=== PATIENT | male | born 1950 | race Caucasian/White ===

== ENCOUNTER → 2019-02-14 | Outpatient (CLI) | payer MEDICARE ==
[~2019-02-14] MED LIST: ASPI81CH33 PO; BUPR15TA PO; METO50TA7 PO; ROSU40TA4 PO
[2019-02-14 08:17] LABS: HEMATOCRIT 44.1 % (42.0-52.0); HEMOGLOBIN 14.5 g/dl (13.5-17.5); MEAN CORPUSCULAR HEMOGLOBIN 29.2 pg (27.0-33.0); MEAN CORPUSCULAR HGB CONC 32.9 g/dl (32.0-36.5); MEAN CORPUSCULAR VOLUME 88.9 fl (80.0-96.0); PLATELET COUNT, AUTOMATED 197 10^3/uL (150-450); RED BLOOD COUNT 4.96 10^6/uL (4.30-6.10); WHITE BLOOD COUNT 7.1 10^3/uL (4.0-10.0)
[2019-02-14 08:37] LABS: PROTHROMBIN TIME 12.9 SECONDS (11.8-14.0)
[2019-02-14 08:40] LABS: ERYTHROCYTE SEDIMENTATION RATE 3 mm/hr (0-20)
[2019-02-14 08:41] LABS: BILIRUBIN,TOTAL 1.1 MG/DL (0.2-1.0); CALCIUM LEVEL 9.5 MG/DL (8.8-10.2); CREATININE FOR GFR 1.6 MG/DL (0.70-1.30); POTASSIUM SERUM 4.4 MEQ/L (3.5-5.1); TOTAL PROTEIN 6.9 GM/DL (6.4-8.2)
--- NOTE | 2019-02-14 08:55 | ECGEPIP ---
[facility] Test Date: 2019-02-14 Pat Name: PERRI ESCALERA Department: Room: - Gender: Male Rn Mental Health: BROOK : 1950 Requested By: Matteo Poole Order Number: [id number] Reading MD: Wilder Paulino Measurements Intervals [place] Rate: 45 P: 4 WI: 212 QRS: -7 QRSD: 113 T: 7 QT: 434 QTc: 379 Interpretive Statements Sinus bradycardia First-degree AV block LA conduction disturbance with leftward axis and somewhat prominent precordial voltage; possible LVH No prior tracing for comparison Electronically Signed on 02-14-2019 8:55:29 EDT by Wilder Paulino
--- NOTE | 2019-02-14 09:38 | REP ---
Chest x-ray: Two views. History: Left knee arthritis. No comparison study. Findings: The patient is status post cervical spine fusion with posterior element and ventral fusion plate hardware visible in the lower cervical spine. There are clips in the right upper quadrant of the abdomen consistent with previous cholecystectomy. The thoracic aorta is tortuous. The lungs are symmetrically aerated and clear. Heart is not felt to be enlarged. Pulmonary vasculature is not increased. Pleural angles are sharp. Impression: No active cardiopulmonary disease. Postoperative changes in the cervical spine and right upper quadrant of the abdomen. Electronically Signed by Saul Morris MD 02/14/2019 12:57 P
== END ==
LOC: M LAB 07:40
PROVIDERS: ATTEND Orthopaedic Surgery
DX: Z01.818 Encounter for other preprocedural examination (principal); M17.12 Unilateral primary osteoarthritis, left knee; Z98.1 Arthrodesis status; Z90.49 Acquired absence of other specified parts of digestive tract

== ENCOUNTER 2019-03-13 06:42 | Inpatient (IN) | payer MEDICARE ==
--- NOTE | 2019-03-03 23:43 | HPE ---
DATE OF PLANNED ADMISSION: 03/13/2019 REFERRING PHYSICIAN: Matteo Poole MD CHIEF COMPLAINT: Left knee pain. HISTORY OF PRESENT ILLNESS: Mr. Munoz is a pleasant 68-year-old male with progressively worsening left knee pain and stiffness. He had failed to improve with conservative treatment. He elected for surgery for his continued symptoms. He has pain with weightbearing activities and his activities of daily living. X-rays of his knee are notable for advanced osteoarthritis of the left knee joint. He has consented for a left total knee arthroplasty by Dr. Matteo Poole. Medical optimization was performed by Dr. Ramirez. ALLERGIES: STREPTOKINASE. CURRENT MEDICATIONS: - Anexsia 5/325 one every 4-6 hours as needed - bupropion hydrochloride ER 150 mg once a day - cyclobenzaprine 10 mg once a day - metoprolol 50 mg twice a day - rosuvastatin 40 mg once a day - vitamin D 50,000 units once a week PAST MEDICAL HISTORY: Includes high blood pressure and high cholesterol. PAST SURGICAL HISTORY: Includes left knee arthroscopy and right knee arthroscopy both in 2011. 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 Does not smoke. Occasionally drinks alcohol. FAMILY HISTORY: Noncontributory. REVIEW OF SYSTEMS: This patient denies chest pain, heart palpitations, cough, wheezing, difficulty breathing, and shortness of breath. He denies abdominal pain, nausea, vomiting, diarrhea, or constipation. He denies recent upper respiratory infection or urinary tract infection symptoms. He does complain of persistent pain in the left knee. PHYSICAL EXAMINATION: General: He is a well-nourished, well-developed in no acute distress, alert male. He ambulates with a moderate limp favoring his left lower extremity without using assistive devices. Vital signs: He is 5 feet 9 inches tall, weighs 188 pounds with a temperature of 97.8, blood pressure 140/70, pulse of 80 and respirations 17. Neck: Supple without adenopathy or jugular venous distension. There were no carotid bruits appreciated upon auscultation. Lungs: Clear to auscultation without rales or wheeze throughout. Heart: Regular rate and rhythm. Abdomen: Bowel sounds were present. Extremities: Examination of the knee revealed intact skin. The patient had decreased range of motion secondary to pain and stiffness. The limb is neurovascularly intact. LABORATORY DATA: EKG showed sinus bradycardia with first-degree atrioventricular (AV) block (AV block. Chest x-ray showed no acute cardiopulmonary disease changes. Protime 12.9, INR 1.00. CBC was within normal limits. Sedimentation rate of 3, glucose 96, BUN 22, creatinine 1.6 for a GFR of 46, sodium 149, potassium 4.4. IMPRESSION: 1. Symptomatic osteoarthritis of the left knee joint. 2. Status post lumbar fusion L5-S1. PLAN: The patient is consented for a left total knee arthroplasty with Dr. Matteo Poole. His primary had some concern over his lumbar fusion hardware having been fractured. It has been that way for quite a while. It has been stable. The purpose of the hardware essentially is to hold the level in place while the fusion takes, which it did. So, I think we will be okay to go ahead with the surgery. Nothing to do for the broken hardware from his spinal fusion. For further details please see the medical record.
[2019-03-13] VITALS (10 sets, daily range): BP systolic 129–190; BP diastolic 73–78
[~2019-03-13] VITALS: Ht 175.3 cm; Wt 83.9 kg
[~2019-03-13 06:42] MED LIST changes: +LIDOCAINE 1% MDV 20ML VIAL SQ PRN; +LR 1,000 ML IV ONE; +ceFAZolin SOD 2 GM in IV 1 EA IV ONE
[2019-03-13] MEDS ORDERED: LIDOCAINE 2% INJ 100 MG/5 ML SDV (FOR ANES.) As Ordered ONE (07:10)
[2019-03-13] MEDS ORDERED: ONDANSETRON 4MG/2ML VIAL (J2405) As Ordered ONE (07:10)
[2019-03-13] MEDS ORDERED: dexameTHASONE 4 MG/ML 1ML VIAL (J1100) As Ordered ONE (07:10)
[2019-03-13] MEDS ORDERED: PROPOFOL 200 MG/20 ML VIAL As Ordered ONE ×2 (07:10→09:45)
[2019-03-13] MEDS ORDERED: ceFAZolin 1GM INJ (J0690 PER 500MG) As Ordered ONE (07:12)
[2019-03-13] MEDS ORDERED: TRANEXAMIC ACID 100 MG/ML 10ML VIAL As Ordered ONE (07:13)
[2019-03-13] MEDS ORDERED: EPINEPHrine INJ 1 MG/ML 1ML AMP As Ordered ONE (07:13)
[2019-03-13] MEDS ORDERED: MIDAZOLAM INJ 2 MG/2 ML VIAL (J2250) As Ordered ONE ×2 (07:14→08:27)
[2019-03-13] MEDS ORDERED: BUPIVACAINE LIPOSOME/PF 1.3% 20ML VIAL (13.3MG/ML)(EXPAREL)(C9290 PER1MG) As Ordered ONE (07:14)
--- NOTE | 2019-03-13 07:47 | IPN ---
DATE: 03/13/2019 The patient seen and examined. He wished to go ahead with a left total knee arthroplasty. He understands the nature, the risks of bleeding, infection, damage to nerves, vessels, persistent pain, wear loosening, blood clots, medical problems, among others. Preop clearance was obtained.
[2019-03-13] MEDS ORDERED: fentaNYL 100 MCG/2 ML INJECTION (J3010) As Ordered ONE (08:27)
[2019-03-13] MEDS ORDERED: MIDAZOLAM INJ 2 MG/2 ML VIAL (J2250) IV ONE (09:00)
[2019-03-13] MEDS ORDERED: fentaNYL 100 MCG/2 ML INJECTION (J3010) IV ONE (09:00)
[2019-03-13] MEDS ORDERED: ACETAMINOPHEN 1000MG 100ML IV BTL (OFIRMEV) (J0131 PER 10MG) As Ordered ONE (09:27)
[2019-03-13] MEDS ORDERED: LR 1,000 ML IV SCH ×3 (11:00→13:30)
[2019-03-13] MEDS ORDERED: ACETAMINOPHEN TAB 650MG DOSE (2X325MG) PO PRN (11:00)
[2019-03-13] MEDS ORDERED: FLEET ENEMA PR PRN (11:00)
[2019-03-13] MEDS ORDERED: PERCOCET 5MG/325MG TAB PO PRN ×2 (11:00→13:30)
[2019-03-13] MEDS ORDERED: MORPHINE 4 MG/ML 1ML VIAL/SYRINGE (J2270) IV PRN ×2 (11:00)
[2019-03-13] MEDS ORDERED: fentaNYL 100 MCG/2 ML INJECTION (J3010) IV PRN ×2 (11:00→13:30)
[2019-03-13] MEDS ORDERED: ONDANSETRON 4MG/2ML VIAL (J2405) IV PRN ×3 (11:00→13:30)
[2019-03-13] MEDS ORDERED: HYDROMORPHONE HCL 0.5 MG/ 0.5 ML SYRINGE (J1170 PER 1) IV PRN ×2 (11:00→13:30)
--- NOTE | 2019-03-13 11:11 | REP ---
LEFT KNEE, TWO VIEWS: Two views of the left knee performed. A total knee prosthesis appears to be in good position. Osseous structures are intact and well aligned. Metallic skin partha are seen anteriorly. Electronically Signed by Harrison Ambrose MD 03/13/2019 06:23 P
[2019-03-13] MEDS ORDERED: METOCLOPRAMIDE INJ 10MG/2ML VIAL (J2765) As Ordered ONE (12:56)
[2019-03-13] MEDS ORDERED: hydrALAZINE INJ 20 MG/ML VIAL As Ordered ONE (12:56)
[2019-03-13] MEDS: hydrALAZINE INJ 20 MG/ML VIAL IV SCH ×8 (12:58→16:26)
[2019-03-13] MEDS ORDERED: METOCLOPRAMIDE INJ 10MG/2ML VIAL (J2765) IV PRN (13:30)
--- NOTE | 2019-03-13 14:45 | CR.PDOC ---
General Date of Consultation: Mar 13, 2019 Referring Provider: Matteo Poole Attending Physician: JOSE PUENTE MD Consultation REASON FOR CONSULTATION/CHIEF COMPLAINT: Postop medical management. HISTORY OF PRESENT ILLNESS: 68-year-old male with past medical history of prostate cancer status post prostatectomy, hypertension, osteoarthritis, is status post left total knee arthroplasty; I was consulted for postop medical management. Patient is currently on the floor, hemodynamically stable, without any complaints at this time, denies any pain, reports left leg is still numb with inability to move it at all. Patient reports taking metoprolol for hypertension at home, rarely takes Percocet for pain. Patient denies any headache, shortness of breath, chest pain, nausea, vomiting, abdominal pain, diarrhea or constipation at this time. 10 point review of system was negative except for above. ALLERGIES: Please see below. HOME MEDICATIONS: Please see below. PAST MEDICAL HISTORY: 1. Hypertension. 2. Prostate cancer. PAST SURGICAL HISTORY: 1. Prostatectomy 2. , Back surgery FAMILY HISTORY: No family history of malignancy or heart disease SOCIAL HISTORY: Tobacco use:Quit 20 years ago, used to smoke 1 pack per day for 25 years ETOH: Rarely PHYSICAL EXAMINATION: VITAL SIGNS: Please see below. GENERAL APPEARANCE: No distress. HEENT: Cephalic, atraumatic, moist mucous membranes. RESPIRATORY: Clear to auscultation. CARDIOVASCULAR: Regular rate and rhythm. ABDOMEN: Soft, nontender, nondistended. EXTREMITIES: [Unable to move left lower extremity due to anesthetic. NEUROLOGICAL: Alert and oriented 3. PSYCHIATRIC: Calm. LABORATORY DATA: Please see below. ASSESSMENT/PLAN: 1. Osteoarthritis status post left total knee arthroplasty. Postop day 0. Postop management as per primary team, including pain control. Encourage early ambulation, recommend VTE prophylaxis (Xarelto has been ordered). 2. Hypertension. Was hypertensive postop, now within normal limits. Continue home metoprolol with hold parameters. 3. Hyperlipidemia. Continue statin. 4. Elevated creatinine. Creatinine 1.6 on preop labs, no baseline to compare. Questionable acute kidney injury versus chronic kidney disease. Questionable obstruction due to prostatectomy and requiring mechanical sphincter for urination. Continue gentle IV hydration, will trend creatinine DVT prophylaxis: Xarelto, SCDs. GI prophylaxis: Not needed at this time Vital Signs/I&O Vital Signs Date Time Temp Pulse Resp B/P (MAP) Pulse Ox O2 Delivery O2 Flow Rate FiO2 03/13/19 13:51 63 18 139/73 (95) 97 03/13/19 11:25 97 03/13/19 11:16 3 Allergies Coded Allergies: streptokinase (Verified Allergy, Unknown, small vessel broke in chest, 02/12/19) Home Medications Scheduled Aspirin (Aspirin) 81 Mg Tab.chew, 81 MG PO DAILY for pain for 30 Days, #30 (Reported) Bupropion HCl (Wellbutrin Sr) 150 Mg Tab.sr.12h, 150 MG PO BID for 30 Days, #60 (Reported) Metoprolol Tartrate (Metoprolol Tartrate) 50 Mg Tablet, 50 MG PO BID for 30 Days, #60 (Reported) Rosuvastatin Calcium (Rosuvastatin Calcium) 40 Mg Tablet, 40 MG PO DAILY for high cholesterol for 30 Days, #30 (Reported) JOSE PUENTE MD Mar 13, 2019 14:34
--- NOTE | 2019-03-13 14:53 | RO ---
DATE OF PROCEDURE: 03/13/2019 PREOPERATIVE DIAGNOSIS: Left knee osteoarthritis. POSTOPERATIVE DIAGNOSIS: Left knee osteoarthritis. PROCEDURE: Left total knee arthroplasty using an Attune rotating platform cruciate retaining size 6 femur, 7 tibial tray, 10 polyethylene, 32 patellar button. SURGEON: Dr. Matteo Poole EXPERIENCE DESIGN DIRECTOR: TIARA Crook ANESTHESIA: Spinal. ESTIMATED BLOOD LOSS: Less than 50. COMPLICATIONS: None. INDICATIONS: 68-year-old with left knee arthritis and wished to proceed with surgery. DESCRIPTION OF PROCEDURE: The patient was taken to the operating room and placed in supine position after spinal anesthesia was induced. The left lower extremity was prepped and draped in usual sterile fashion. Time-out was performed. A longitudinal incision was made over the anterior aspect the knee. Sharp dissection was carried down through subcutaneous tissue. A medial parapatellar arthrotomy was performed per routine, everted the patella, flexed the knee up, and then used the canal reamer followed by the intramedullary femoral guide set at 5 degrees of valgus 9 mm cut. This was pinned in placed. The distal femoral cut was made protecting soft tissues. I then sized the femur to be a 6 and the cutting block was then secured. Remaining cuts were made. We then prepared the tibial surface. The tibial alignment guide was then used. The appropriate amount of valgus and posterior slope was dialed in. I then made the cut in the proximal tibia about 4 mm off the low side, having check the external alignment guide. This bone was removed. I then removed soft tissue and osteophytes from either side of the knee. I then made the sulcus cut on the femoral side. The tibial tray was then secured and the size 7 fit nicely. This was pinned in place, drilled and broached. Spacer blocks were then used to determine the estimated thickness of the polyethylene. The trial components were placed and the 10 polyethylene seemed to be appropriate with appropriate balance and alignment. I then freehand cut the patella removing about 6-7 mm of bone, trialed the 32, which fit nicely. Drill holes were placed on the patella side and on the femoral side. The patella tracked very nicely. The professional nursing assistant prepared the bone cement. I then removed the trial components, irrigated, copiously placed Exparel in deep tissues. I then cemented in the components after irrigating and drying the bony surfaces. The excess bone cement was removed. The knee was brought out in extension. We then prepared the deep layer with #1 Vicryl suture and running Stratafix suture once the cement had hardened on the patella and outside the wound. Once the deep layer was closed and the cement was hardened, we deflated the tourniquet, closed subcutaneous with 2-0 Vicryl, skin with partha. Sterile dressing was applied. He was taken to recovery room in stable condition. There were no known complications. The plan will be routine postop. The professional nursing assistant was instrumental in holding retractors and assisting in wound closure, assisting in mixing the bone cement, and assisting in providing exposure. SPIKE
[2019-03-13] MEDS: ceFAZolin SOD 2 GM in IV 1 EA IV SCH (18:19)
[2019-03-13] MEDS: PERCOCET 5MG/325MG TAB PO PRN (20:27)
[2019-03-14] MEDS: ceFAZolin SOD 2 GM in IV 1 EA IV SCH (01:31)
[2019-03-14] MEDS: PERCOCET 5MG/325MG TAB PO PRN ×2 (01:31→06:37)
[2019-03-14 02:00] VITALS: BP 128/74
[2019-03-14 05:58] LABS: HEMATOCRIT 38.7 % (42.0-52.0); HEMOGLOBIN 13.1 g/dl (13.5-17.5); MEAN CORPUSCULAR HGB CONC 33.9 g/dl (32.0-36.5); MEAN CORPUSCULAR VOLUME 88.6 fl (80.0-96.0); PLATELET COUNT, AUTOMATED 202 10^3/uL (150-450); RED BLOOD COUNT 4.37 10^6/uL (4.30-6.10); WHITE BLOOD COUNT 15.9 10^3/uL (4.0-10.0)
[2019-03-14 06:00] VITALS: BP 127/76
[2019-03-14] MEDS ORDERED: PERCOCET 5MG/325MG TAB PO PRN (06:00)
[2019-03-14 06:36] LABS: ALBUMIN 3.3 GM/DL (3.2-5.2); BILIRUBIN,TOTAL 1.1 MG/DL (0.2-1.0); CALCIUM LEVEL 8.5 MG/DL (8.8-10.2); CREATININE FOR GFR 1.45 MG/DL (0.70-1.30); GLOMERULAR FILTRATION RATE 51.5 (>49); POTASSIUM SERUM 4.2 MEQ/L (3.5-5.1); TOTAL PROTEIN 6.5 GM/DL (6.4-8.2)
[2019-03-14] MEDS ORDERED: XARE10TA PO (06:49)
[2019-03-14] MEDS ORDERED: PERC5TAB12 PO (06:49)
[2019-03-14] MEDS ORDERED: MOM 30ML SUSPENSION UDC PO SCH (09:00)
[2019-03-14] MEDS ORDERED: SENOKOT S TAB PO SCH (09:00)
[2019-03-14] MEDS ORDERED: MIRALAX *UNIT DOSE* 17GM PACKET PO SCH (09:00)
[2019-03-14] MEDS ORDERED: FLUBLOK(EGG FREE)(QUAD)INFLUENZA VACC 0.5ML SYRINGE (90682)18YRS&OLDER IM ONE (09:00)
[2019-03-14] MEDS ORDERED: RIVAROXABAN 10 MG TAB (XARELTO) PO SCH (18:00)
== END 2019-03-14 11:45 | disposition home or self-care (01) | DRG 470 ==
LOC: M OR 06:42 → M MS5PR 14:10
PROVIDERS: ADMIT Orthopaedic Surgery; ATTEND Orthopaedic Surgery
PROC: 0SRD0J9 Replacement of Left Knee Joint with Synthetic Substitute, Cemented, Open Approach (ICD-10-PCS; principal; 2019-03-13 09:15)
DX: M17.12 Unilateral primary osteoarthritis, left knee (principal); E78.00 Pure hypercholesterolemia, unspecified; I10 Essential (primary) hypertension; Z98.1 Arthrodesis status; Z79.899 Other long term (current) drug therapy; Z85.46 Personal history of malignant neoplasm of prostate; Z87.891 Personal history of nicotine dependence

== ENCOUNTER → 2020-03-13 | Outpatient (CLI) | payer MEDICARE ==
[~2020-03-13] MED LIST changes: -LIDOCAINE 1% MDV 20ML VIAL SQ PRN; -LR 1,000 ML IV ONE; +PERC5TAB12 PO; +XARE10TA PO; -ceFAZolin SOD 2 GM in IV 1 EA IV ONE
--- NOTE | 2020-03-18 11:27 | REP ---
URINARY TRACT SONOGRAPHY HISTORY: Chronic kidney disease stage III. History of renal stones. Prior prostatectomy. FINDINGS: Scanning at the level of the urinary bladder shows no evidence of bladder mass. Bladder does not appear fully distended. No extravesical lesion is seen. Renal cortical echogenicity pattern is normal. No hydronephrosis is seen on either side. No mass or calculus is observed. There is a 0.8 cm cyst in the upper pole of the right kidney and 0.5 cm cyst is seen in the right kidney lower pole. Right renal dimensions are 9.2 x 6.3 x 5.2 cm. Left kidney measures 10.7 x 4.9 x 5.2 cm. IMPRESSION: Small right renal cyst. Otherwise negative urinary tract sonography. MTDD
== END ==
LOC: M RAD 11:35
PROVIDERS: ATTEND Internal Medicine Nephrology
DX: N28.1 Cyst of kidney, acquired (principal); I12.9 Hypertensive chronic kidney disease with stage 1 through stage 4 chronic kidney disease, or unspecified chronic kidney disease; N18.31 Chronic kidney disease, stage 3a; Z87.442 Personal history of urinary calculi

== ENCOUNTER → 2021-08-28 | Outpatient (CLI) | payer MEDICARE | LOC: M LABSMTC 09:21 | PROVIDERS: ATTEND Surgery Vascular Surgery | DX: Z01.812 Encounter for preprocedural laboratory examination (principal); I70.211 Atherosclerosis of native arteries of extremities with intermittent claudication, right leg ==

== ENCOUNTER → 2021-10-16 | Outpatient (CLI) | payer MEDICARE | LOC: M LABSMTC 09:05 | PROVIDERS: ATTEND Surgery Vascular Surgery | DX: Z20.822 Contact with and (suspected) exposure to COVID-19 (principal) ==

== ENCOUNTER → 2022-10-20 | Outpatient (CLI) | payer MEDICARE | LOC: M RAD 13:24 | PROVIDERS: ATTEND Physician Assistant | DX: I70.621 Atherosclerosis of nonbiological bypass graft(s) of the extremities with rest pain, right leg (principal) ==

== ENCOUNTER → 2023-02-03 | Outpatient (CLI) | payer MEDICARE | LOC: M RAD 09:52 | PROVIDERS: ATTEND Physician Assistant | DX: I73.9 Peripheral vascular disease, unspecified (principal) ==

== ENCOUNTER → 2023-08-14 | Outpatient (CLI) | payer MEDICARE | LOC: M RAD 10:26 | PROVIDERS: ATTEND Physician Assistant | DX: I73.9 Peripheral vascular disease, unspecified (principal) ==

== ENCOUNTER → 2024-02-23 | Outpatient (CLI) | payer MEDICARE ==
[~2024-02-23] MED LIST changes: -ROSU40TA4 PO; +ROSU40TA81 PO
== END ==
LOC: M RAD 10:30
PROVIDERS: ATTEND Physician Assistant
DX: I73.9 Peripheral vascular disease, unspecified (principal)

== ENCOUNTER → 2024-08-23 | Outpatient (CLI) | payer MEDICARE | LOC: M RAD 10:47 | PROVIDERS: ATTEND Physician Assistant | DX: I70.621 Atherosclerosis of nonbiological bypass graft(s) of the extremities with rest pain, right leg (principal); I73.9 Peripheral vascular disease, unspecified ==

== ENCOUNTER → 2025-03-03 | Outpatient (CLI) | payer MEDICARE | LOC: M RAD 14:53 | PROVIDERS: ATTEND Physician Assistant | DX: I73.9 Peripheral vascular disease, unspecified (principal) ==